=== PATIENT | female | born 1985 | race Asian ===

== ENCOUNTER 2023-04-26 08:24 | Outpatient (CLI) | payer BC | END 2023-04-26 08:25 | disposition home or self-care (01) | LOC: CSHULT 08:24 | PROVIDERS: ATTEND Internal Medicine Gastroenterology | DX: B18.1 Chronic viral hepatitis B without delta-agent (principal) | CPT/HCPCS: 76705 ==

== ENCOUNTER 2023-10-08 08:25 | Outpatient (CLI) | payer BC | END 2023-10-08 08:26 | disposition home or self-care (01) | LOC: CSHULT 08:25 | PROVIDERS: ATTEND Internal Medicine Gastroenterology | DX: B18.1 Chronic viral hepatitis B without delta-agent (principal); K74.01 Hepatic fibrosis, early fibrosis | CPT/HCPCS: 76705 ==